=== PATIENT | female | born 1940 | race Caucasian/White ===

== ENCOUNTER 2017-09-01 18:50 | Emergency (ER) | payer MEDICARE ==
[2017-09-01 21:50] LABS: ABS Basophils 0.1 10^3/ul (0-0.2); ABS Eosinophils 0.1 10^3/ul (0-0.6); ABS Lymphocytes 2.3 10^3/ul (1.0-4.8); ABS Monocytes 0.9 10^3/ul (0-0.8); ABS Neutrophils 5.1 10^3/ul (1.5-7.7); ABS Nucleated RBC 0 10^3/ul; Eosinophil % 0.7 % (0-6); Hematocrit 41 % (35-47); Hemoglobin 13.7 g/dl (12.0-16.0); Lymphocyte % 27.3 % (25-47); Mean Corpuscular HGB Conc 34 g/dl (31-36); Mean Corpuscular Hemoglobin 31 pg (27-31); Mean Corpuscular Volume 92 fL (80-97); Mean Platelet Volume 9.8 um3 (7.4-10.4); Nucleated Red Blood Cells % 0; Platelet Count 284 10^3/ul (150-450); Red Cell Distribution Width 13 % (10.5-15); White Blood Count 8.5 10^3/ul (3.5-10.8)
[2017-09-01 22:06] LABS: EGFR Non-African American 34.6 (>60)
[2017-09-01 22:13] LABS: INR 1.1 (0.77-1.02)
--- NOTE | 2017-09-01 23:37 | ED ---
Lower Extremity - HPI Summary HPI Summary: 76 yo F c/o right lower leg pain for several days. Was started on doxycycline by Fina Jones NP on 08/31/17 for leg pain and redness and abd discomfort and pt has some relief, but states that last night the pain was so severe, she could not even put her leg down on the bed. Pt has hx of fracture to the right ankle twice in the past. She denies any new injury or fall, but states the right ankle continues painful and swollen. No hx blood clots. No chest pain or SOB. Pt states the abd pain, N,V, D that she thought might be food poisoning from take out hamburger ([employer]) is gone since the doxycycline. - History of Current Complaint Chief Complaint: EDExtremityLower Stated Complaint: RT FOOT SWELLING Time Seen by Provider: 09/01/17 22:59 Hx Obtained From: Patient Mechanism Of Injury: Other - no known injury Onset of Pain: Prior to Arrival Onset/Duration: Still Present Severity Initially: Severe Severity Currently: Severe Pain Intensity: 10 Pain Scale Used: 0-10 Numeric Timing: Constant Location: Is Discrete @ - right leg Character Of Pain: Sharp, Aching Associated Signs And Symptoms: Positive: Swelling, Fever - 2 days ago, resolved. Negative: Redness, Bruising Aggravating Factor(s): Standing Alleviating Factor(s): Nothing Able to Bear Weight: Yes - Allergies/Home Medications Allergies/Adverse Reactions: Allergies Allergy/AdvReac Type Severity Reaction Status Date / Time tetracycline Allergy Nausea Verified 09/02/17 01:05 Yellow Jackets Allergy Intermediate Swelling Uncoded 09/02/17 01:05 PMH/Surg Hx/FS Hx/Imm Hx Previously Healthy: No Endocrine/Hematology History: Denies: Hx Diabetes, Hx Systemic Lupus Erythematosus, Hx Thyroid Disease Cardiovascular History: Reports: Hx Hypertension Denies: Hx Congestive Heart Failure Respiratory History: Denies: Hx Asthma, Hx Chronic Obstructive Pulmonary Disease (COPD) GI History: Denies: Hx Ulcer History: Reports: Hx Renal Disease - HX RENAL CA, Other Problems/ Disorders - kidney ca Denies: Hx Dialysis Musculoskeletal History: Reports: Hx Osteoporosis Denies: Hx Rheumatoid Arthritis - Cancer History Cancer Type, Location and Year: malignant neoplasm kidney , left nephectomy 2009 Hx Chemotherapy: No Hx Radiation Therapy: No - Surgical History Surgery Procedure, Year, and Place: radical nephrectomy-left KIDNEY 2009, Pin in right foot @ AGE 26 YRS, tonsiLlectomy A CHILD AGE 7; - Immunization History Date of Tetanus Vaccine: utd Date of Influenza Vaccine: utd Infectious Disease History: Yes Infectious Disease History: Reports: Hx Shingles Denies: Hx Hepatitis, Hx Human Immunodeficiency Virus (HIV), History Other Infectious Disease, Traveled Outside the [place] in Last 30 Days - Family History Known Family History: Positive: Hypertension - Social History Lives: Assisted Living Alcohol Use: Occasionally Hx Substance Use: No Substance Use Type: Reports: None Smoking Status (MU): Former Smoker Review of Systems Positive: Fever - fever resolved on antibiotics Cardiovascular: Negative Respiratory: Negative Positive: Vomiting - resolved, Diarrhea - resolved, Nausea - resolved Positive: no symptoms reported Positive: Arthralgia - right ankle and right leg , Other - swelling right ankle Skin: Negative Neurological: Negative Psychological: Normal All Other Systems Reviewed And Are Negative: Yes Physical Exam Triage Information Reviewed: Yes Vital Signs On Initial Exam: Initial Vitals Temp Pulse Resp BP Pulse Ox 99.3 F 68 18 115/55 96 09/01/17 19:13 09/01/17 19:13 09/01/17 19:13 09/01/17 19:13 09/01/17 19:13 Vital Signs Reviewed: Yes Appearance: Positive: Well-Appearing, Pain Distress, Obese Skin: Positive: Warm, Skin Color Reflects Adequate Perfusion, Dry, Tender. Negative: Erythema @ Head/Face: Positive: Normal Head/Face Inspection - right ankle, right post calf Eyes: Positive: EOMI, SHAWNA, Conjunctiva Clear ENT: Positive: Normal ENT inspection, Hearing grossly normal Neck: Positive: Supple, Nontender, No Lymphadenopathy Respiratory/Lung Sounds: Positive: Clear to Auscultation, Breath Sounds Present Cardiovascular: Positive: RRR, S1, S2. Negative: Murmur, Rub Abdomen Description: Positive: Nontender, Soft. Negative: Distended, Guarding, Pulsatile Mass Bowel Sounds: Positive: Present Musculoskeletal: Positive: Normal, Strength/ROM Intact, Pain @ - right ankle, right post calf Neurological: Positive: Sensory/Motor Intact, Alert, Oriented to Person Place, Time, Facial Symmetry, Speech Normal, Other - antalgic gait but able to bear wt Psychiatric: Positive: Normal - [place] Coma Scale Best Eye Response: 4 - Spontaneous Best Motor Response: 6 - Obeys Commands Best Verbal Response: 5 - Oriented Coma Scale Total: 15 Diagnostics - Vital Signs Vital Signs Temp Pulse Resp BP Pulse Ox 09/01/17 19:13 99.3 F 68 18 115/55 96 - Laboratory Lab Results: Lab Results 09/01/17 09/01/17 09/01/17 Range/Units 21:40 21:40 21:40 WBC 8.5 (3.5-10.8) 10^3/ul RBC 4.40 (4.00-5.40) 10^6/ul Hgb 13.7 (12.0-16.0) g/dl Hct 41 (35-47) % MCV 92 (80-97) fL MCH 31 (27-31) pg MCHC 34 (31-36) g/dl RDW 13 (10.5-15) % Plt Count 284 (150-450) 10^3/ul MPV 9.8 (7.4-10.4) um3 Neut % (Auto) 60.2 (38-83) % Lymph % (Auto) 27.3 (25-47) % [place] % (Auto) 10.9 H (0-7) % Eos % (Auto) 0.7 (0-6) % Baso % (Auto) 0.9 (0-2) % Absolute Neuts (auto) 5.1 (1.5-7.7) 10^3/ul Absolute Lymphs (auto) 2.3 (1.0-4.8) 10^3/ul Absolute Monos (auto) 0.9 H (0-0.8) 10^3/ul Absolute Eos (auto) 0.1 (0-0.6) 10^3/ul Absolute Basos (auto) 0.1 (0-0.2) 10^3/ul Absolute Nucleated RBC 0 10^3/ul Nucleated RBC % 0 INR (Anticoag Therapy) 1.10 H (0.77-1.02) APTT 27.7 (26.0-36.3) seconds Sodium 140 (135-145) mmol/L Potassium 4.4 (3.5-5.0) mmol/L Chloride 105 (101-111) mmol/L Carbon Dioxide 24 (22-32) mmol/L Anion Gap 11 (2-11) mmol/L BUN 20 (6-24) mg/dL Creatinine 1.47 H (0.51-0.95) mg/dL Est GFR ( Amer) 41.8 (>60) Est GFR (Non-Af Amer) 34.6 (>60) BUN/Creatinine Ratio 13.6 (8-20) Glucose 116 H (70-100) mg/dL Lactic Acid (0.5-2.0) mmol/L Calcium 11.3 H (8.6-10.3) mg/dL Total Bilirubin 0.60 (0.2-1.0) mg/dL AST 21 (13-39) U/L ALT 27 (7-52) U/L Alkaline Phosphatase 84 (34-104) U/L Troponin I 0.00 (<0.04) ng/mL Total Protein 7.8 (6.4-8.9) g/dL Albumin 4.5 (3.2-5.2) g/dL Globulin 3.3 (2-4) g/dL Albumin/Globulin Ratio 1.4 (1-3) 09/01/17 Range/Units 21:40 WBC (3.5-10.8) 10^3/ul RBC (4.00-5.40) 10^6/ul Hgb (12.0-16.0) g/dl Hct (35-47) % MCV (80-97) fL MCH (27-31) pg MCHC (31-36) g/dl RDW (10.5-15) % Plt Count (150-450) 10^3/ul MPV (7.4-10.4) um3 Neut % (Auto) (38-83) % Lymph % (Auto) (25-47) % [place] % (Auto) (0-7) % Eos % (Auto) (0-6) % Baso % (Auto) (0-2) % Absolute Neuts (auto) (1.5-7.7) 10^3/ul Absolute Lymphs (auto) (1.0-4.8) 10^3/ul Absolute Monos (auto) (0-0.8) 10^3/ul Absolute Eos (auto) (0-0.6) 10^3/ul Absolute Basos (auto) (0-0.2) 10^3/ul Absolute Nucleated RBC 10^3/ul Nucleated RBC % INR (Anticoag Therapy) (0.77-1.02) APTT (26.0-36.3) seconds Sodium (135-145) mmol/L Potassium (3.5-5.0) mmol/L Chloride (101-111) mmol/L Carbon Dioxide (22-32) mmol/L Anion Gap (2-11) mmol/L BUN (6-24) mg/dL Creatinine (0.51-0.95) mg/dL Est GFR ( Amer) (>60) Est GFR (Non-Af Amer) (>60) BUN/Creatinine Ratio (8-20) Glucose (70-100) mg/dL Lactic Acid 0.9 (0.5-2.0) mmol/L Calcium (8.6-10.3) mg/dL Total Bilirubin (0.2-1.0) mg/dL AST (13-39) U/L ALT (7-52) U/L Alkaline Phosphatase (34-104) U/L Troponin I (<0.04) ng/mL Total Protein (6.4-8.9) g/dL Albumin (3.2-5.2) g/dL Globulin (2-4) g/dL Albumin/Globulin Ratio (1-3) Result Diagrams: 09/01/17 21:40 09/01/17 21:40 Lab Statement: Any lab studies that have been ordered have been reviewed, and results considered in the medical decision making process. - Radiology right ankle Xray Interpretation: No Acute Changes Radiology Interpretation Completed By: ED Physician - no fracture noted - Additional Comments Diagnostic Additional Comments: Right leg ultrasound: radiologist: No DVT Re-Evaluation - Re-Evaluation First Eval Re-Evaluation Time: 00:30 Change: Unchanged Comment: no change, awaiting US report Second Eval Re-Evaluation Time: 01:15 Change: Unchanged Comment: given xray and US results. Asks for one aspirin for pain. Agrees to try a CAM boot. Lower Extremity Course/Dx - Course Course Of Treatment: Pt had labs, plain xray and US of her right ankle to eval for leg and ankle pain. Diff dx cellulitis vs DVT vs fracture. No fx or DVT. Pt advised to continue doxycycline as directed to continue treating probable resolving cellulitis. Pt given CAM boot for ambulation. - Diagnoses Differential Diagnosis/HQI/PQRI: Positive: Cellulitis, DVT, Fracture (Closed), Infection Provider Diagnoses: Acute right ankle pain, Cellulitis Discharge - Sign-Out/Discharge Documenting (check all that apply): Discharge/Admit/Transfer - home - Discharge Plan Condition: Stable Disposition: HOME Patient Education Materials: Ankle Sprain (ED), Swollen Joint (ED) Referrals: Luz Wakefield MD [Primary Care Provider] - 2 Days Additional Instructions: Dr. Adair did not see any fracture in your ankle. That is a preliminary report. If there is a change in the reading, we will contact you. We gave you a walking boot that you may wear for comfort. The ultrasound of your leg also did not show any blood clot. Dr. Adair recommends that you should continue the doxycycline as directed. Return to the ER if you have any new or worsening symptoms. - Billing Disposition and Condition Condition: STABLE Disposition: Home
[2017-09-02] MEDS ORDERED: Aspirin TAB* 325 MG PO ONE (01:15)
[2017-09-02 01:49] VITALS: BP 136/74
--- NOTE | 2017-09-02 07:13 | RAD ---
INDICATION: Right ankle pain and swelling COMPARISON: None TECHNIQUE: AP, lateral, and oblique views were obtained. FINDINGS: There is osteopenia. There is moderate degenerative change about the tibiotalar joint. There is mild diffuse soft tissue swelling. Incidental note is made of small heel spurs. IMPRESSION: NO ACUTE BONY FINDINGS.
--- NOTE | 2017-09-02 07:39 | RAD ---
INDICATION: Pain and swelling. COMPARISON: None TECHNIQUE: Duplex interrogation of the Lowerextremity was performed. FINDINGS: Deep veins: The common femoral, great saphenous, profunda femoris, proximal, mid, and distal deep femoral, popliteal, posterior tibial, and peroneal veins are patent. There is normal compressibility, augmentation, and phasic flow. Superficial veins: There are no findings of superficial thrombophlebitis. Popliteal fossa:There is no evidence of a popliteal cyst. Soft tissues:There are no soft tissue abnormalities. IMPRESSION: Normal examination. No evidence of deep venous thrombosis
== END 2017-09-02 01:51 | disposition home or self-care (01) ==
LOC: ED 18:50
DX: M79.661 Pain in right lower leg (principal); L03.115 Cellulitis of right lower limb; Z85.528 Personal history of other malignant neoplasm of kidney; Z90.5 Acquired absence of kidney; Z87.891 Personal history of nicotine dependence; Z88.3 Allergy status to other anti-infective agents
CPT/HCPCS: 36415; 80053; 83605; 84484; 85025; 85610; 85730; 87040; 99282

== ENCOUNTER 2019-03-03 14:24 | Observation (INO) | payer MEDICARE, OTHER ==
[2019-03-03] MEDS ORDERED: Acetaminophen TAB* 325 MG PO ONE (14:29)
[2019-03-03] MEDS ORDERED: NS 0.9% 1000 ML** 1,000 ML IV ONE ×2 (14:29→15:51)
--- NOTE | 2019-03-03 14:38 | ED ---
HPI Febrile Illness - HPI Summary HPI Summary: This pt is a 78 Y/O F presenting to [facility] after being transported by the ambulance for a CC of a fevrile illness. She states that she has been sick with a fever and nigh diaphoresis since 02/26/19 and has lower extremity pain bilaterially with both ROM and palpation that is rated a 6/10 in severity. She states that she has arthralgia as well. She had a fever at home of 100.3 and 102.7 while enroute in the ambulance. She states that she has chills constantly and has been trying to stay hydrated. She states that she is having troubles urinating and that she has been having weakness and fatigue. She states that she has issues with ambulating and is unable to stand normally. She states that she has a Hx of gout and has been taking medications until she had a kidney removed and was taken off of the medication. She states that she has been unable to take her gout medications due to an inability to reach her PCP. She denies any coughs, sore throats, N/V/D, and neck pain. She has no aggravating or alleviating factors. She has a PMHx of Gout, prediabetic, and a nephrectomy due to kidney cancer. - History of Current Complaint Chief Complaint: EDFever Time Seen by Provider: 03/03/19 14:28 Hx Obtained From: Patient Onset/Duration: Started Minutes Ago, Still Present Time of Onset: 14:26 Timing: Constant Temperature: 102.6 F Initial Severity: Moderate Current Severity: Moderate Pain Intensity: 6 Pain Scale Used: 0-10 Numeric Aggravating Factors: Nothing Alleviating Factors: Nothing Associated Signs and Symptoms: Negative - coughs, sore throats, N/V/D, and neck pain, Chills, Fluid Intake - increased but states that she still feels dehydrated, Headache, Joint Pain, Night Sweats, Other: - urinary issues, fatigue - Allergy/Home Medications Allergies/Adverse Reactions: Allergies Allergy/AdvReac Type Severity Reaction Status Date / Time doxycycline Allergy Rash Verified 03/03/19 14:32 tetracycline Allergy Nausea Verified 03/03/19 14:28 [place] Allergy Intermediate Swelling Uncoded 03/03/19 14:28 Home Medications: Home Medications Alendronate TAB (NF) [Fosamax TAB (NF)] 10 mg PO DAILY 03/03/19 [History Confirmed 03/03/19] Aspirin EC TAB* [Ecotrin EC Low Dose 81 MG*] 81 mg PO DAILY 03/03/19 [History Confirmed 03/03/19] Atenolol TAB* [Tenormin TAB* 25 MG] 25 mg PO DAILY 03/03/19 [History Confirmed 03/03/19] LevoCETirizine TAB (NF) [Xyzal TAB (NF)] 5 mg PO DAILY 03/03/19 [History Confirmed 03/03/19] Omeprazole 20 mg PO DAILY 03/03/19 [History Confirmed 03/03/19] Simvastatin (NF) [Zocor (NF)] 40 mg PO DAILY 03/03/19 [History Confirmed ] PMH/Surg Hx/FS Hx/Imm Hx Previously Healthy: Yes Endocrine/Hematology History: Denies: Hx Diabetes, Hx Systemic Lupus Erythematosus, Hx Thyroid Disease Cardiovascular History: Reports: Hx Hypertension Denies: Hx Congestive Heart Failure Respiratory History: Denies: Hx Asthma, Hx Chronic Obstructive Pulmonary Disease (COPD) GI History: Reports: Other GI Disorders - denies s/s hx ca Denies: Hx Ulcer History: Reports: Hx Renal Disease - HX RENAL CA, Other Problems/ Disorders - kidney ca Denies: Hx Dialysis Musculoskeletal History: Reports: Hx Osteoporosis Denies: Hx Rheumatoid Arthritis - Cancer History Cancer Type, Location and Year: malignant neoplasm kidney , left nephectomy 2009 Hx Chemotherapy: No Hx Radiation Therapy: No - Surgical History Surgical History: Yes Surgery Procedure, Year, and Place: radical nephrectomy-left KIDNEY 2009, Pin in right foot @ AGE 26 YRS, tonsiLlectomy A CHILD AGE 7; - Immunization History Date of Tetanus Vaccine: utd Date of Influenza Vaccine: utd Immunizations Up to Date: Yes Infectious Disease History: No Infectious Disease History: Reports: Hx Shingles Denies: Hx Hepatitis, Hx Human Immunodeficiency Virus (HIV), History Other Infectious Disease, Traveled Outside the [place] in Last 30 Days - Family History Known Family History: Positive: None, Hypertension - Social History Occupation: Retired Lives: With Family Alcohol Use: Occasionally Hx Substance Use: No Substance Use Type: Reports: None Hx Tobacco Use: Yes Smoking Status (MU): Former Smoker Review of Systems Positive: Fever - 102.6, Chills, Fatigue, Skin Diaphoresis - night sweats ENT: Negative - neck pain Negative: Cough Negative: Vomiting, Diarrhea, Nausea Musculoskeletal: Other - States lower extremity pain Positive: Arthralgia Positive: Headache, Weakness All Other Systems Reviewed And Are Negative: Yes Physical Exam - Summary Physical Exam Summary: Constitutional: Well-developed, Well-nourished, Alert. (-) Distressed Skin: Warm, Dry HENT: Normocephalic; Atraumatic, Dry mucus membranes Eyes: Conjunctiva normal Neck: Musculoskeletal ROM normal neck. (-) JVD, (-) Stridor, (-) Tracheal deviation Cardio: Rhythm regular, rate normal, Heart sounds normal; Intact distal pulses; The pedal pulses are 2+ and symmetric. Radial pulses are 2+ and symmetric. Pulmonary/Chest wall: Effort normal. (-) Respiratory distress, (-) Wheezes, (-) Rales Abd: Soft, (-) tenderness, (-) Distension, (-) Guarding, (-) Rebound Musculoskeletal: Bilateral lower extremity tenderness to palpation, no edema, erythema, or deformity. No isolated joint pain. Neuro: Alert, Oriented x3 Psych: Mood and affect Normal Triage Information Reviewed: Yes Vital Signs On Initial Exam: Initial Vitals Temp Pulse Resp BP Pulse Ox 102.6 F 76 20 176/86 96 03/03/19 14:25 03/03/19 14:25 03/03/19 14:25 03/03/19 14:25 03/03/19 14:25 Vital Signs Reviewed: Yes Procedures - Sedation Patient Received Moderate/Deep Sedation with Procedure: No Diagnostics - Vital Signs Vital Signs Temp Pulse Resp BP Pulse Ox 03/03/19 14:25 102.6 F 76 20 176/86 96 - Laboratory Result Diagrams: 03/03/19 14:37 03/03/19 14:37 Lab Statement: Any lab studies that have been ordered have been reviewed, and results considered in the medical decision making process. Course/Dx - Course Course Of Treatment: This pt is a 78 Y/O F presenting to [facility] after being transported by the ambulance for a CC of a febrile illness. She states that she has been sick with a fever and nigh diaphoresis since 02/26/19 and has lower extremity pain with both ROM and palpation. She states that she has arthralgia as well and a headache that has been present since the onset. She had a fever at home of 100.3 and 102.7 while enroute in the ambulance. She states that she has chills constantly and has been trying to stay hydrated but constantly feels dejydrated. She states that she is having troubles urinating and that she has been having weakness and fatigue. She has a PMHx of kidney cancer, gout, and is prediabetic. Her PE found that she has dry mucus membranes and Bilateral lower extremity tenderness to palpation, no edema, erythema, or deformity. No isolated joint pain. She received fluids and APAP during her ED course. She received a rapid influenza test upon arrival to her ED room. Patient states history of pseudogout, complaining of pain in bilateral feet/ankles, denies trauma. States prior improvement with naproxen which her cloth picker subsequently recommended against taking given history of renal cancer status post nephrectomy, has one kidney with elevated creatinine level. Patient notes prior steroid injection which likewise helped with her pain. At this point, patient given Tylenol for her fever. Flu swab negative. No signs of SBI. Patient still complaining of bilateral ankle pain, given 2 mg of morphine, will reassess. Pt will be admitted to [facility] as a skilled nursing admission due to inability to ambulate. - Diagnoses Provider Diagnoses: Bilateral ankle pain, Febrile illness - Provider Notifications Discussed Care Of Patient With: Madelin Sanchez Time Discussed With Above Provider: 20:43 Instructed by Provider To: Admit As Inpatient Admit/Transition Orders Completed By ED Provider: Yes Discharge ED - Sign-Out/Discharge Documenting (check all that apply): Patient Departure - admitted - Discharge Plan Condition: Stable Disposition: ADMITTED TO [facility] Referrals: Chioma Davis DO [Primary Care Provider] - - Attestation Statements Document Initiated by Scribe: Yes Documenting Scribe: Luis Alberto Westbrook Provider For Whom Scribe is Documenting (Include Credential): Shiv Nazario MD Scribe Attestation: Luis Alberto Dill, scribed for Shiv Nazario MD on 03/03/19 at 2042. Status of Scribe Document: Ready
[2019-03-03 14:46] LABS: Hematocrit 41 % (35-47); Hemoglobin 13.9 g/dL (12.0-16.0); Mean Corpuscular HGB Conc 34 g/dL (31-36); Mean Corpuscular Hemoglobin 32 pg (27-31); Mean Corpuscular Volume 93 fL (80-97); Mean Platelet Volume 9.8 fL (7.4-10.4); Platelet Count 223 10^3/uL (150-450); Red Blood Count 4.41 10^6 /uL (3.70-4.87); Red Cell Distribution Width 13 % (10-15); White Blood Count 8.2 10^3/uL (3.5-10.8)
[2019-03-03 14:52] LABS: ABS Lymphocytes 1.2 10^3/ul (1.0-4.8); ABS Monocytes 0.8 10^3/ul (0-0.8); Eosinophil % 0.3 %; Lymphocyte % 14.9 %; Nucleated Red Blood Cells % 0.1
[2019-03-03 15:01] LABS: ALT 20 U/L (7-52); AST 18 U/L (13-39); Albumin 4.4 g/dL (3.2-5.2); Albumin/Globulin Ratio 1.3 (1-3); Alkaline Phosphatase 83 U/L (34-104); Anion Gap 8 mmol/L (2-11); BUN/Creatinine Ratio 11.9 (8-20); Blood Urea Nitrogen 15 mg/dL (6-24); CO2 Carbon Dioxide 23 mmol/L (22-32); Calcium 10.5 mg/dL (8.6-10.3); Chloride 109 mmol/L (101-111); EGFR African American 49.7 (>60); EGFR Non-African American 41.1 (>60); Globulin 3.3 g/dL (2-4); Glucose 121 mg/dL (70-100); Potassium 4.4 mmol/L (3.5-5.0); Sodium 140 mmol/L (135-145); Total Protein 7.7 g/dL (6.4-8.9)
[2019-03-03 15:06] LABS: Influenza A Molecular NEGATIVE (Negative); Influenza B Molecular NEGATIVE (Negative)
--- OUTSIDE RECORDS SUMMARY | 2019-03-03 15:27 | XMS REPORT | Continuity of Care Document ---
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 Problems Provider Date Idiopathic gout, left ankle and foot Ahmet Chambers MD Onset: 02/19/2018 Idiopathic gout, left knee Ahmet Chambers MD Onset: 10/02/2017 Chondrocalcinosis due to pyrophosphate crystals Chioma Davis DO Onset: Hyperlipidemia Chioma Davis DO Onset: 12/25/2018 Social History Type Date Description Comments Sex Unknown ETOH Use Drinks Alcoholic Beverages Rarely Tobacco Use Start: Unknown Patient has never smoked Smoking Status Reviewed: 01/24/19 Patient has never smoked Exercise Type/Frequency Exercises rarely Allergies, Adverse Reactions, Alerts Active Allergies Reaction Severity Comments Date Doxycycline Abdominal pain, Palpitations, burning Severe 12/25/2018 Bee Sting sight swelling, pain Mild 12/25/2018 Inactive Allergies NKDA 06/05/2013 Medications Active Medications SIG Qnty Indications Ordering Date Provider Alendronate Sodium take one tab 30tabs M81.0 Chioma Davis, 01/24/2019 70mg once weekly DO Tablets Atenolol 1 by mouth Unknown 25mg Tablets every day Levocetirizine 1 by mouth Unknown Dihydrochloride every day 5mg Tablets Simvastatin 1 by mouth Unknown 20mg Tablets every day Omeprazole 1 by mouth Unknown 20mg Capsules DR every day Aspirin Adult Low Dose 1 by mouth Unknown 81mg every day Tablets Aspirin Adult as needed Unknown 325mg Tablets Medications Administered in Office Medication SIG Qnty Indications Ordering Provider Date Triamcinolone (Kenalog) Ahmet Chambers MD 10/02/2017 Injection Triamcinolone (Kenalog) Ahmet Chambers MD 09/11/2017 Injection Immunizations CPT Code Status Date Vaccine Lot # [id number] Given 12/31/2017 Fluzone High Dose Vital Signs Date Vital Result Comment 01/24/2019 10:24am Height 66 inches 5'6" Weight 219.00 lb Heart Rate 87 /min BP Systolic 140 mmHg BP Diastolic 80 mmHg Body Temperature 97.7 F O2 % BldC Oximetry 97 % BMI (Body Mass Index) 35.3 kg/m2 12/25/2018 9:25am Height 66 inches 5'6" Weight 217.00 lb with shoes Heart Rate 73 /min BP Systolic 138 mmHg LA sitting BP Diastolic 85 mmHg LA sitting Body Temperature 97.1 F O2 % BldC Oximetry 96 % BMI (Body Mass Index) 35.0 kg/m2 Results Test Acquired Date Facility Test Result H/L Range Note Lipid Profile 12/25/2018 [facility] Triglycerides 334 mg/dL 1 (Trig/Chol/HDL) [address] [place] [address] [phone] Cholesterol 196 mg/dL 2 HDL Cholesterol 42.1 mg/dL 3 LDL Cholesterol 87 mg/dL 4 Laboratory test 12/25/2018 [facility] Hemoglobin A1c 5.9 % High 4.0-5.[address] (Glyco HGB) [place] [address] [phone] Comp Metabolic 12/25/2018 [facility] Sodium 144 Normal 135- [address] mmol/[place] [address] [phone] Potassium 4.4 mmol/L Normal 3.5-5.0 Chloride 109 mmol/L Normal 101-111 Co2 Carbon Dioxide 28 mmol/L Normal 22-32 Anion Gap 7 mmol/L Normal 2-11 Glucose 129 mg/dL High 70-100 Blood Urea Nitrogen 15 mg/dL Normal 6-24 Creatinine 1.27 mg/dL High 0.51-0.95 BUN/Creatinine Ratio 11.8 Normal 8-20 Calcium 10.8 mg/dL High 8.6-10.3 Total Protein 6.8 g/dL Normal 6.4-8.9 Albumin 4.4 g/dL Normal 3.2-5.2 Globulin 2.4 g/dL Normal 2-4 Albumin/Globulin Ratio 1.8 Normal 1-3 Total Bilirubin 0.50 mg/dL Normal 0.2-1.0 Alkaline Phosphatase 84 U/L Normal 34-104 Alt 43 U/L Normal 7-52 Ast 31 U/L Normal 13-39 Egfr Non- 40.7 >60 Egfr 49.2 >60 6 1,25 Dihydroxy Vitamin 12/25/2018 [facility] Calcitriol 39 pg/ mL 18-78 [address] [place] [address] [phone] Desirable: <150 Borderline High: 150-199 High: 200-499 Very High: >500 2 Desirable: <200 Borderline High: 200-239 High: >239 3 Low: <40 Desirable: 40-60 High: >60 4 Desirable: <100 Near Optimal: 100-129 Borderline High: 130-159 High: 160-189 Very High: >189 5 Therapeutic target for the treatment of diabetes mellitus patients is <7% HBA1C, and in selective patients <6.0%. Please refer to [place] [employer] diabetic care guidelines for further information. 6 Because ethnic data is not always readily available, this report includes an eGFR for both -Americans and non- Americans. The National Kidney Disease Education Program (NKDEP) does not endorse the use of the MDRD equation for patients that are not between the ages of 18 and 70, are , have extremes of body size, muscle mass, or nutritional status, or are non- or non-. According to the National Kidney Foundation, irrespective of diagnosis, the stage of the disease is based on the level of kidney function: Stage Description GFR(mL/min/1.73 m(2)) 1 Kidney damage with normal or decreased GFR 90 2 Kidney damage with mild decrease in GFR 60-89 3 Moderate decrease in GFR 30-59 4 Severe decrease in GFR 15-29 5 Kidney failure <15 (or dialysis) 7 ADDITIONAL INFORMATION This test was developed and its performance characteristics determined by [facility] in a manner consistent with CLIA requirements. This test has not been cleared or approved by the U.S. Food and Drug Administration. Test Performed by: [facility] [address] [place] [address] Cad Cam Programmer: Twin Silva M.D. Ph.D.; CLIA# [id number] Procedures Date Code Description Status 12/27/2018 090555275 Bone Mineral Density Test Completed Medical Devices Description No Information Available Encounters Type Date Location Provider Dx Diagnosis Office Visit 12/25/2018 [employer] Internal Chioma Davis, Z00.00 Encntr for general 9:20a Medicine - Suite DO adult medical exam R w/o abnormal findings Z13.220 Encounter for screening for lipoid disorders Z85.528 Personal history of other malignant neoplasm of kidney I10 Essential (primary) hypertension M10.00 Idiopathic gout, unspecified site Z90.5 Acquired absence of kidney Assessments Date Code Description Provider 01/24/2019 M81.0 Age-related osteoporosis without current Chioma Senner, DO pathological fracture 12/25/2018 Z00.00 Encounter for general adult medical examination Chioma Davis, DO without abnormal findings 12/25/2018 Z13.220 Encounter for screening for lipoid disorders Chioma Davis, DO 12/25/2018 Z85.528 Personal history of other malignant neoplasm of Chioma Senner, DO kidney 12/25/2018 I10 Essential (primary) hypertension Chioma Davis, DO 12/25/2018 M10.00 Idiopathic gout, unspecified site Chioma Sencal, DO 12/25/2018 Z90.5 Acquired absence of kidney Chioma Senner, DO Plan of Treatment 01/24/2019 - Chioma Davis, DOM81.0 Age-related osteoporosis without current pathological fractureNew Medication:Alendronate Sodium 70 mg - take one tab once weeklyReferral:Genet Piña MD, Sports Medicine:Family pr Functional Status Description No Information Available Mental Status Description No Information Available Referrals Refer to Dr Reason for Referral Status Appt Date Genet Piña MD Created [address] [place] [address] [phone]
[2019-03-03] MEDS ORDERED: Morphine 4 MG/ML VIAL (1 ml) 4 MG/ML VIAL IV ONE (17:04)
[2019-03-03] MEDS ORDERED: Ondansetron INJ* 2 MG/ML VIAL IV ONE (17:05)
[2019-03-03 18:15] LABS: Urine Appearance Clear; Urine Bilirubin Negative (Negative); Urine Blood Negative (Negative); Urine Color Yellow; Urine Glucose Negative (Negative); Urine Ketones Negative (Negative); Urine Nitrite Negative (Negative); Urine Protein Negative (Negative); Urine Specific Gravity 1.017 (1.010-1.030); Urine Urobilinogen Negative (Negative)
[2019-03-03 18:29] LABS: Urine Bacteria Absent (Absent); Urine Red Blood Cell Trace(0-2/hpf) (Absent); Urine Squamous Epithelial Cell Present (Absent); Urine Transitional Epithelial Present (Absent); Urine White Blood Cell 3+(>20/hpf) (Absent)
[2019-03-03 21:11] LABS: Rheumatoid Factor < 10 IU/mL (<15)
[2019-03-03 21:12] LABS: C Reactive Protein 63.66 mg/L (<8.01); Uric Acid 9.4 mg/dL (2.3-6.6)
[2019-03-03] MEDS ORDERED: Acetaminophen TAB* 325 MG PO PRN (21:37)
[2019-03-03 22:02] LABS: Erythrocyte Sed Rate 52 mm/Hr (0-29)
--- NOTE | 2019-03-03 23:02 | HP ---
CC: Dr. Davis* HISTORY AND PHYSICAL: DATE OF ADMISSION: 03/03/19 PRIMARY CARE PROVIDER: Dr. Davis. CHIEF COMPLAINT: Bilateral lower extremity pain. HISTORY OF PRESENT ILLNESS: Ms. Mcqueen is a 78-year-old female who has a history of hypertension, hyperlipidemia, and osteoporosis as well as possible past diagnosis of pseudogout involving the ankle, who presents to the emergency room with complaints of bilateral lower extremity pain. The patient states that approximately 6 days ago, her symptoms began. She states that she was trying to nurse her back to health as he had recently been hospitalized with pneumonia. She began to have initially left foot pain, which then traveled up the left leg. Then, the right knee was involved then the right foot was involved. She was hopeful that the left foot will get better and the right foot would be sore for a while; however, that did not happen and now she has bilateral foot and ankle pain. She states that she spent the last 6 days essentially in bed being up for only a couple of minutes at a time to get to the bathroom. She has not been able to really walk due to severe pain. She does admit to shivering while lying in bed over the last 6 days. Initially she had headache. Prior to all these beginning, she did have diffuse body aches. She never took her temperature; however, when she presented to the emergency room, she had a fever of 102.6. The patient does state that in the past, perhaps several years ago, she had a similar situation where she had severe ankle pain. She saw Dr. Chambers from Orthopedics, who ultimately did steroid injection and diagnosed her with pseudogout. She states that helped dramatically. PAST MEDICAL HISTORY: 1. Hypertension. 2. GERD. 3. Allergic rhinitis. 4. Hyperlipidemia. 5. Osteoporosis. 6. Renal cell carcinoma, status post nephrectomy. PAST SURGICAL HISTORY: 1. Left nephrectomy. 2. Bilateral ankle surgery. MEDICATIONS: 1. Alendronate 10 mg p.o. daily. 2. Levocetirizine 5 mg p.o. daily. 3. Aspirin 81 mg p.o. daily. 4. Atenolol 25 mg p.o. daily. 5. Omeprazole 20 mg p.o. daily. 6. Simvastatin 40 mg p.o. daily. ALLERGIES: DOXYCYCLINE and TETRACYCLINE. FAMILY HISTORY: Mom of pancreatic cancer. Dad of possibly COPD. SOCIAL HISTORY: The patient was a former smoker quitting at the age of 26. She drinks alcohol on rare occasion. 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 She is . She has 2 children. She indicates that her is her healthcare proxy. REVIEW OF SYSTEMS: A complete 11-system review of systems is obtained. Pertinent positives and negatives are as per HPI and otherwise negative. PHYSICAL EXAMINATION GENERAL: The patient is a well-developed, obese elderly female, seen lying in the stretcher, in no acute distress. VITAL SIGNS: Blood pressure 142/58, pulse 62, respirations 19, temp 97.1, O2 sat 95% on room air. HEENT: Pupils are equal. Extraocular muscles are intact. Oropharynx is clear and moist. There is no submandibular, cervical, or supraclavicular adenopathy. PULMONARY: Lungs are clear to auscultation bilaterally. CARDIAC: Normal S1, S2. Regular rate and rhythm. I do not appreciate any murmurs. There is minimal bilateral foot edema. ABDOMEN: Bowel sounds present. Abdomen is soft, nontender, and nondistended. MUSCULOSKELETAL: There is no cyanosis or clubbing of the digits. There is full active range of the motion of the upper extremities. Range of motion with dorsi and plantar flexion of the feet bilaterally is reduced, otherwise range of motion is normal in the lower extremities. The bilateral ankles feel warm to touch though there is no erythema. They are tender to palpation. SKIN: Visible areas of skin are warm, dry, and without rash. NEUROLOGIC: Cranial nerves II through XII are grossly intact. Sensation is intact to light touch throughout. Strength appears to be normal in the upper extremities. Lower extremities strength is not tested at this time. PSYCH: The patient is alert. She is oriented x3. Affects appears appropriate. DIAGNOSTIC STUDIES/LAB DATA: WBC 8.2, hemoglobin 13.9, hematocrit 41, platelets 223. Sodium 140, potassium 4.4, chloride 109, CO2 23. BUN 15, creatinine 1.26. Glucose 121. Calcium 10.5. Bilirubin 0.7, AST 18, ALT 20, alk phos 83, albumin 4.4. Urinalysis reveals a specific gravity of 1.017, 2+ leukocyte esterase, 3+ wbc's, positive squamous epithelial cells, and positive transitional epithelial cells, absent bacteria. Influenza A and B negative. ASSESSMENT AND PLAN: Ms. Mcqueen is a 78-year-old female with history of hypertension, hyperlipidemia, osteoporosis, and possible pseudogout in the past who presents to the emergency room with complaints of bilateral lower extremity pain, more focally located in the bilateral ankles. 1. Bilateral ankle pain. The etiology behind this is unclear. It does sound in the past that she has had good response to steroid injection. At this point , she has received 60 mg of prednisone in the emergency room. She does not take NSAIDs due to her stage 3 chronic kidney disease secondary to left nephrectomy. We will continue prednisone 40 mg p.o. daily. I have ordered a physical therapy evaluation for tomorrow. At this point, the patient is only being admitted due to the fact that she is unable to ambulate due to such severe pain in her ankles.. I do not believe that she needs an acute aspiration of the ankle joint at this time. I have incredibly low suspicion for septic arthritis despite the patient having fever. The patient will have Tylenol and p.r.n. tramadol for pain. 2. Fever. It is unclear whether the patient is having this fever. There are no focal signs of infection. I am not starting antibiotics at this point. We will monitor for any clear symptoms or signs of infection. 3. Hypertension. Blood pressure is under fair control. She will continue on atenolol 25 mg p.o. daily. 4. Hyperlipidemia. Continue simvastatin 40 mg p.o. daily. 5. Gastrointestinal reflux disease. Continue omeprazole. 6. DVT prophylaxis. According to the Adult Thrombosis Prophylaxis Risk Factor Assessment Guide, the patient has a total risk factor score of 4 making her high risk. Heparin 5000 units subcutaneous q. 8 hours will be utilized as DVT prophylaxis. 7. Code status is full. TIME SPENT: Sixty-five minutes was spent admitting this patient. [id number]/[facility] #: [id number] ROGE
[2019-03-03] MEDS: traMADol TAB* 50 MG PO PRN (23:35)
[2019-03-03] MEDS: Heparin VIAL(*) 5000 UNITS/ML VIAL (FIVE THOUSAND) SUBCUT SCH (23:35)
[2019-03-04] MEDS: Heparin VIAL(*) 5000 UNITS/ML VIAL (FIVE THOUSAND) SUBCUT SCH ×2 (05:22→15:14)
[2019-03-04] MEDS ORDERED: Pantoprazole TAB * 40 MG TAB PO SCH (09:00)
[2019-03-04] MEDS ORDERED: Atorvastatin* 20 MG TAB PO SCH (09:00)
[2019-03-04] MEDS ORDERED: Aspirin EC TAB* 81 MG TAB.EC PO SCH (09:00)
[2019-03-04] MEDS ORDERED: Atenolol TAB* 25 MG PO SCH (09:00)
[2019-03-04] MEDS: traMADol TAB* 50 MG PO PRN (10:14)
[2019-03-04 10:52] VITALS: BP 153/63
--- NOTE | 2019-03-04 22:21 | DS ---
CC: Dr. Chioma Davis; Dr. Sangita Ha* DISCHARGE SUMMARY: DATE OF ADMISSION: 03/03/19 DATE OF DISCHARGE: 03/04/19 PRIMARY CARE PROVIDER: Dr. Chioma Davis. ATTENDING PHYSICIAN: Dr. Sangita Ha* (dictated by GAVIN Echeverria). PRIMARY DIAGNOSIS: 1. Bilateral ankle pain, likely due to pseudogout. SECONDARY DIAGNOSES: 1. Hypertension. 2. Hyperlipidemia. 3. Gastroesophageal reflux disease. 4. Renal cell carcinoma, status post nephrectomy. 5. Osteoporosis. 6. Allergic rhinitis. DISCHARGE MEDICATIONS: Home medications: 1. Alendronate 10 mg p.o. daily. 2. Aspirin 81 mg p.o. daily. 3. Atenolol 25 mg p.o. daily. 4. Levocetirizine 5 mg p.o. daily. 5. Omeprazole 20 mg p.o. daily. 6. Simvastatin 40 mg p.o. daily. New home medications: 1. Acetaminophen 650 mg p.o. q.4 hours p.r.n. pain. 2. Colchicine 0.6 mg p.o. daily. 3. Prednisone taper 40 mg daily x2 days, then decrease by 10 mg p.o. every 3 days, then discontinue. HISTORY OF PRESENT ILLNESS/HOSPITAL COURSE: Ms. Ramos is a 78-year-old female with a past medical history of hypertension, hyperlipidemia, and osteoporosis, possibly pseudogout of the ankle, who presented to the ER on 03/03 with complaints of bilateral lower extremity pain. For full and complete details, please see the history and physical dictated by Dr. Madelin Sanchez, but in short, the patient presents with the above symptoms. The pain started in the left foot/ankle, then travelled up the leg as well as to the right knee. She was admitted to the hospital and received 60 mg prednisone in the ER. Laboratory data revealed rheumatoid factor less than 10, elevated CRP, elevated ESR, uric acid of 9.4. The patient reports being unable to ambulate at admission and on the day after admission, the patient was able to ambulate without difficulty. Physical Therapy worked with the patient and recommends skilled PT to increase functional independence and safety. On the day of discharge, the patient reports great improvement in her lower extremity pain. She notes that she had bilateral ankle pain, left greater than right at admission that caused her to be unable to ambulate. Currently, she has no pain and she is ambulating without difficulty. The suspicion is that this is due to pseudogout. She has been started on prednisone which will be tapered off over the next 11 days. She will also be started on prophylactic dose of colchicine and will follow with her primary care provider. REVIEW OF SYSTEMS: A 14-point review of systems has been performed and all the pertinent positives and negative are in the HPI. All other systems are negative. Ms. Mcqueen is stable for discharge to home. PHYSICAL EXAMINATION: Vital Signs: Temperature 97.4 oral, heart rate 74, respiratory rate 18, oxygen saturation 97% on room air, blood pressure 153/63. General: Ms. Mcqueen is a well-developed, well-nourished, obese, older white lady, who is sitting in a chair with the lower extremities at floor. She is pleasant, cooperative, and appears to be in no acute distress. HEENT: Pupils equal, round and reactive to light. Extraocular movements are intact. Peripheral visual piedra grossly intact. Nonicteric sclerae. Hearing is grossly intact. Oral mucous membranes are mildly dry. Pharynx is clear without lesions, erythema, or exudate. The tongue is at midline. Palate elevates symmetrically. Cardiovascular: Regular rate and rhythm with S1 and S2 present. No murmurs, rubs, clicks, or gallops. There is no JVD or peripheral edema. Pulmonary: Symmetrical chest expansion without use of accessory muscles. Clear to auscultation bilaterally without rhonchi, wheezes, or rales. Abdomen: Obese. Bowel sounds in all quadrants, soft, nontender to palpation. Musculoskeletal: Bilateral upper extremities with full range of motion, equal strength of 5/5, equal licensed nurse practitioner strength. Bilateral lower extremities , 5/5 strength. Bilateral ankles with full range of motion. There is swelling noted to the lateral malleolus bilaterally with right greater than left. There is no associated erythema. This area is nontender to palpation. There is mild decreased range of motion, but range of motion is painless. Neuro: The patient is awake. She is alert and oriented x3 with cranial nerves II through XII grossly intact. DISPOSITION: Ms. Mcqueen is stable for discharge home. CONDITION: Good. DIET: Heart healthy. ACTIVITY: 1. As tolerated. 2. Followup with Physical Therapy. MEDICATIONS: 1. Prednisone taper starting with 40 mg daily x2 days, starting tomorrow, then decrease by 10 mg p.o. daily q.3 days until discontinued. 2. Colchicine daily. EDUCATION: 1. Follow up with primary care provider in 4 to 7 days. 2. Follow up with [facility] for PT needs. 3. Return to the ER or the nearest hospital if she experiences any return or worsening of symptoms, chest pain or discomfort, shortness of breath, dizziness , lightheadedness, loss of consciousness, high fevers, chills, night sweats, or any other worrisome signs or symptoms. This is a summarized report of a complex medical history and hospital stay. For further details, please see the entire medical record. TIME SPENT: Approximately 35 minutes was spent on this discharge, greater than half that time was spent [id number] with the patient discussing discharge plans and instructions. GAVIN BILLY [id number]/[facility] #: [id number] ROGE
== END 2019-03-04 15:50 | disposition home or self-care (01) ==
LOC: ED 14:24 → MED 21:37
PROVIDERS: ADMIT Hospitalist; ATTEND Internal Medicine
DX: M25.572 Pain in left ankle and joints of left foot (principal); M25.571 Pain in right ankle and joints of right foot; I10 Essential (primary) hypertension; E78.5 Hyperlipidemia, unspecified; K21.9 Gastro-esophageal reflux disease without esophagitis; Z90.5 Acquired absence of kidney; M81.0 Age-related osteoporosis without current pathological fracture; J30.9 Allergic rhinitis, unspecified; Z79.82 Long term (current) use of aspirin; Z79.899 Other long term (current) drug therapy; Z85.53 Personal history of malignant neoplasm of renal pelvis; M10.9 Gout, unspecified; Z87.891 Personal history of nicotine dependence; R51 Headache
CPT/HCPCS: 36415; 80053; 81003; 81015; 84550; 85025; 85652; 86140; 86431; 87086; 96361; 96372; 96374; 96375; 99285; A9270-GY; G0378; G8978-GP-CJ; G8979-GP-CI; J1644; J2270; J2405; J7512

== ENCOUNTER 2019-05-22 10:32 | Day surgery (SDC) | payer MEDICARE ==
[~2019-05-22 10:32] MED LIST: Acetaminophen TAB* 325 MG PO PRN; Buffered Lidocaine 1% SYRIN* 1 ML/SYRINGE INTRADERM ONE; Cyclopentolate 1% OPTH.SOL* 2 ML BTL ONE; Ketorolac 0.5% OPHTH (NF) 0.5 % 5 ML BTL ONE; Lidocaine 1% MPF ** 5 ML VIAL ONE; Lidocaine 2% w/ EPI 1:200,000* 20 ML SDV VIAL ONE; Neomycin/Polymy/Dex OPTH.SUSP* MAXITROL 0.1% 5 ML ONE; Phenylephrine OPHTH SOL 2.5%* 2 ML ONE; Povidone Iodine 5% OPTH* 30 ML BTL ONE; Proparacaine 0.5% OPHTH.SOL* 15 ML BTL ONE; acetaZOLAMIDE TAB* 250 MG ONE
[2019-05-22] MEDS ORDERED: Midazolam* 1 MG/ML 5 ML VIAL (5 MG) ONE (12:30)
[2019-05-22 13:56] VITALS: BP 156/72
--- NOTE | 2019-05-23 01:28 | OP ---
DATE OF OPERATION: 05/22/19 [facility] DATE OF : 40 SURGEON: Tay Melvin M.D. PREOPERATIVE DIAGNOSIS: Cataract, right. POSTOPERATIVE DIAGNOSIS: Cataract, right. OPERATIVE PROCEDURE: Extracapsular cataract extraction with IOL, intraocular lens implant right eye. DESCRIPTION OF PROCEDURE: The patient was brought to the operating room after being given 1/2% Alcaine with epinephrine drops in the preoperative area. The eye was prepped and draped in the usual sterile fashion. Sterile drape and eyelid speculum were placed. Again, topical 1/2% Alcaine with epinephrine was given. A paracentesis incision was made at the 9 o'clock position with the No.75 blade. Clear cornea incision 2.2 x 2.2-mm was created at the 12 o'clock position starting at the anterior limbus using the 2.2-mm keratome. The anterior chamber was irrigated with 0.4 mL of 1% non-preservative intracameral lidocaine and filled with DisCoVisc. A capsulorrhexis was completed using the cystotome and the Utrata forceps. Hydrodissection was performed with balanced salt solution. The lens nucleus was removed with the Phacoemulsification handpiece without incident. Cortex was removed with the irrigation-aspiration handpiece. The capsular bag was re-inflated using DisCoVisc and an [id number] 21.5 implant was inserted with the shooter. The irrigation-aspiration handpiece was used to remove all residual DisCoVisc. The eye was refilled with balanced salt solution and the wound checked and found to be watertight. Topical Maxitrol drops were given. [id number]/[facility] #: [id number] [facility]
== END 2019-05-22 13:43 | disposition home or self-care (01) ==
LOC: OREAST 10:32
PROVIDERS: ATTEND Specialist
DX: H25.811 Combined forms of age-related cataract, right eye (principal); K21.9 Gastro-esophageal reflux disease without esophagitis; I10 Essential (primary) hypertension; H18.51 Endothelial corneal dystrophy; E78.00 Pure hypercholesterolemia, unspecified; Z85.528 Personal history of other malignant neoplasm of kidney; Z90.5 Acquired absence of kidney; Z87.891 Personal history of nicotine dependence; Z79.82 Long term (current) use of aspirin; Z79.52 Long term (current) use of systemic steroids; Z88.1 Allergy status to other antibiotic agents; Z91.030 Bee allergy status
CPT/HCPCS: A9270-GY; J2250; V2632

== ENCOUNTER 2020-01-21 12:53 | Inpatient (IN) ==
[2020-01-21] MEDS ORDERED: NS 0.9% 1000 ml BAG 1,000 ML IV ONE (13:06)
[2020-01-21] MEDS ORDERED: niCARdipine 0.1MG/ML IVPREMIX 20 MG/200 ML BAG IV ONE (13:40)
[2020-01-21] MEDS ORDERED: ALTEPLASE IV ONE (13:44)
[2020-01-21] MEDS ORDERED: Alteplase (100 mg Vial) 100 MG in Premix IV 100 ML IV ONE (13:44)
[2020-01-21] MEDS ORDERED: Alteplase (100 mg Vial) 100 mg VIAL IV ONE ×2 (13:55→13:58)
[2020-01-21] MEDS ORDERED: niCARdipine 0.1MG/ML IVPREMIX 20 MG/200 ML BAG IV SCH (14:00)
[2020-01-21 14:18] LABS: ABS Basophils 0.1 10^3/ul (0-0.2); ABS Eosinophils 0.2 10^3/ul (0-0.6); ABS Lymphocytes 2.4 10^3/ul (1.0-4.8); ABS Monocytes 0.5 10^3/ul (0-0.8); ABS Neutrophils 2.6 10^3/ul (1.5-7.7); Eosinophil % 4.2 %; Hematocrit 43 % (35-47); Hemoglobin 14.4 g/dL (12.0-16.0); Lymphocyte % 41.3 %; Mean Corpuscular HGB Conc 34 g/dL (31-36); Mean Corpuscular Hemoglobin 32 pg (27-31); Mean Corpuscular Volume 94 fL (80-97); Mean Platelet Volume 10.3 fL (7.4-10.4); Nucleated Red Blood Cells % 0.1; Platelet Count 229 10^3/uL (150-450); Red Blood Count 4.57 10^6 /uL (3.70-4.87); Red Cell Distribution Width 14 % (10-15); White Blood Count 5.8 10^3/uL (3.5-10.8)
[2020-01-21 14:35] LABS: Activated Partial Thrombo Time 30.1 seconds (26.0-38.0); INR 0.98 (0.82-1.09)
[2020-01-21 14:36] LABS: Albumin 4.6 g/dL (3.2-5.2); Albumin/Globulin Ratio 1.8 (1-3); EGFR African American 60.5 (>60); Globulin 2.5 g/dL (2-4); HDL Cholesterol 43.1 mg/dL; Potassium 4.4 mmol/L (3.5-5.0); Total Bilirubin 0.3 mg/dL (0.2-1.0); Total Protein 7.1 g/dL (6.4-8.9)
[2020-01-21 14:49] LABS: TSH Ultra Thyroid Stim Horm 1.67 mcIU/mL (0.34-5.60)
[2020-01-21 15:24] LABS: Magnesium 1.8 mg/dL (1.9-2.7)
[2020-01-21] MEDS ORDERED: Perflutren Lipid Microsphere 3 ML VIAL ONE (16:09)
[2020-01-21] MEDS ORDERED: Magnesium Sulfate 2 gm BAG 2 GM/50 ML BAG IVPB ONE (19:57)
[2020-01-21] MEDS: niCARdipine 0.1MG/ML IVPREMIX 20 MG/200 ML BAG IV SCH (21:09)
[2020-01-22] MEDS: niCARdipine 0.1MG/ML IVPREMIX 20 MG/200 ML BAG IV SCH (04:44)
[2020-01-22 04:51] LABS: ABS Basophils 0.1 10^3/ul (0-0.2); ABS Eosinophils 0.2 10^3/ul (0-0.6); ABS Lymphocytes 1.8 10^3/ul (1.0-4.8); ABS Monocytes 0.4 10^3/ul (0-0.8); ABS Neutrophils 2.9 10^3/ul (1.5-7.7); Eosinophil % 4.2 %; Hematocrit 40 % (35-47); Hemoglobin 13.4 g/dL (12.0-16.0); Lymphocyte % 33.5 %; Mean Corpuscular HGB Conc 34 g/dL (31-36); Mean Corpuscular Hemoglobin 32 pg (27-31); Mean Corpuscular Volume 94 fL (80-97); Mean Platelet Volume 10.1 fL (7.4-10.4); Platelet Count 206 10^3/uL (150-450); Red Blood Count 4.26 10^6 /uL (3.70-4.87); Red Cell Distribution Width 14 % (10-15); White Blood Count 5.5 10^3/uL (3.5-10.8)
[2020-01-22 04:56] LABS: INR 1.07 (0.82-1.09)
[2020-01-22 05:17] LABS: Magnesium 2.1 mg/dL (1.9-2.7); Potassium 4.7 mmol/L (3.5-5.0); Total Bilirubin 0.4 mg/dL (0.2-1.0)
[2020-01-22 05:23] LABS: Albumin/Globulin Ratio 2.1 (1-3); BUN/Creatinine Ratio 16.5 (8-20); EGFR African American 72.2 (>60); EGFR Non-African American 59.6 (>60); Globulin 1.9 g/dL (2-4); Phosphorus 3.3 mg/dL (2.5-5.0); Total Protein 5.9 g/dL (6.4-8.9)
[2020-01-22] MEDS: Cholecalciferol (VIT D3) 1,000 unit TAB PO SCH (08:34)
[2020-01-22] MEDS ORDERED: Iodixanol (CONTRAST) 320 MG/ML 100 ML SDV IV ONE (15:59)
[2020-01-22] MEDS ORDERED: Cyanocobalamin INJ 1,000 MCG/ML VIAL 1 ML VIAL IM ONE (19:39)
[2020-01-22] MEDS: Aspirin EC 81 mg TAB.EC (enteric coated) PO SCH (19:43)
[2020-01-23 04:36] LABS: ABS Eosinophils 0.2 10^3/ul (0-0.6); ABS Lymphocytes 2.5 10^3/ul (1.0-4.8); ABS Monocytes 0.5 10^3/ul (0-0.8); ABS Neutrophils 2.4 10^3/ul (1.5-7.7); Eosinophil % 4.4 %; Hematocrit 40 % (35-47); Hemoglobin 13.3 g/dL (12.0-16.0); Lymphocyte % 44.9 %; Mean Corpuscular HGB Conc 33 g/dL (31-36); Mean Corpuscular Hemoglobin 32 pg (27-31); Mean Corpuscular Volume 95 fL (80-97); Mean Platelet Volume 10.1 fL (7.4-10.4); Nucleated Red Blood Cells % 0.1; Platelet Count 210 10^3/uL (150-450); Red Blood Count 4.22 10^6 /uL (3.70-4.87); Red Cell Distribution Width 14 % (10-15); White Blood Count 5.6 10^3/uL (3.5-10.8)
[2020-01-23 04:53] LABS: Albumin 3.9 g/dL (3.2-5.2); Albumin/Globulin Ratio 1.6 (1-3); BUN/Creatinine Ratio 15.4 (8-20); Calcium 9.9 mg/dL (8.6-10.3); EGFR Non-African American 42.1 (>60); Globulin 2.5 g/dL (2-4); Magnesium 1.8 mg/dL (1.9-2.7); Potassium 4.8 mmol/L (3.5-5.0); Total Bilirubin 0.3 mg/dL (0.2-1.0); Total Protein 6.4 g/dL (6.4-8.9)
[2020-01-23] MEDS ORDERED: Magnesium Sulfate 2 GM IV (Premix) IVPB ONE (06:00)
[2020-01-23] MEDS: Aspirin EC 81 mg TAB.EC (enteric coated) PO SCH (09:18)
[2020-01-23] MEDS: Cholecalciferol (VIT D3) 1,000 unit TAB PO SCH (09:18)
[2020-01-24] MEDS: Cholecalciferol (VIT D3) 1,000 unit TAB PO SCH (08:36)
[2020-01-24] MEDS: Aspirin EC 81 mg TAB.EC (enteric coated) PO SCH (08:37)
[2020-01-24 12:45] VITALS: BP 179/78
== END 2020-01-24 13:46 | disposition home health service (06) | DRG 61 ==
LOC: ED 12:53 → ICU 14:37 → MEDTELE 01-24 07:36
PROVIDERS: ADMIT Internal Medicine; ATTEND Internal Medicine

== ENCOUNTER 2020-11-11 21:06 | Inpatient (IN) ==
[2020-11-11] MEDS ORDERED: Acetaminophen IV 1 GM/100ML 100 ML IV ONE (21:30)
[2020-11-11 21:52] LABS: ABS Basophils 0.1 10^3/ul (0-0.2); ABS Eosinophils 0.2 10^3/ul (0-0.6); ABS Lymphocytes 3.1 10^3/ul (1.0-4.8); ABS Monocytes 0.7 10^3/ul (0-0.8); ABS Neutrophils 4.5 10^3/ul (1.5-7.7); Eosinophil % 2.3 %; Hematocrit 38 % (35-47); Lymphocyte % 35.9 %; Mean Corpuscular HGB Conc 34 g/dL (31-36); Mean Corpuscular Hemoglobin 32 pg (27-31); Mean Corpuscular Volume 94 fL (80-97); Mean Platelet Volume 9.7 fL (7.4-10.4); Platelet Count 253 10^3/uL (150-450); Red Blood Count 4.07 10^6 /uL (3.70-4.87); Red Cell Distribution Width 14 % (10-15); White Blood Count 8.6 10^3/uL (3.5-10.8)
[2020-11-11 22:11] LABS: Albumin 4.5 g/dL (3.2-5.2); Albumin/Globulin Ratio 1.7 (1-3); Calcium 10.7 mg/dL (8.6-10.3); EGFR Non-African American 50.4 (>60); Globulin 2.6 g/dL (2-4); Potassium 4.1 mmol/L (3.5-5.0); Total Bilirubin 0.4 mg/dL (0.2-1.0); Total Protein 7.1 g/dL (6.4-8.9)
[2020-11-11 22:19] LABS: Activated Partial Thrombo Time 27.4 seconds (26.0-38.0); INR 0.96 (0.86-1.15)
[2020-11-11] MEDS ORDERED: fentaNYL 100 mcg/2 ml 50 MCG/ML VIAL IV ONE (22:22)
[2020-11-11] MEDS ORDERED: Magnesium Hydroxide LIQ 30 ML UDC PO PRN (23:54)
[2020-11-11] MEDS ORDERED: Ondansetron 4 mg VIAL 2 MG/ML 2 ml VIAL IV PRN (23:54)
[2020-11-12] MEDS ORDERED: Morphine 2 MG/ML SYRINGE IV PRN (00:02)
[2020-11-12] MEDS ORDERED: Acetaminophen IV 1 GM/100ML 100 ML IV PRN (00:30)
[2020-11-12] MEDS: HYDROmorphone 0.5 MG/0.5 ML SYRINGE IV PRN ×2 (01:03→07:42)
[2020-11-12] MEDS ORDERED: NS 0.9% 1000 ml BAG 1,000 ML IV SCH (03:30)
[2020-11-12 05:36] LABS: ABS Lymphocytes 1.3 10^3/ul (1.0-4.8); ABS Monocytes 0.7 10^3/ul (0-0.8); ABS Neutrophils 7.5 10^3/ul (1.5-7.7); Eosinophil % 0.1 %; Hematocrit 36 % (35-47); Hemoglobin 12.1 g/dL (12.0-16.0); Lymphocyte % 13.8 %; Mean Corpuscular HGB Conc 34 g/dL (31-36); Mean Corpuscular Hemoglobin 32 pg (27-31); Mean Corpuscular Volume 95 fL (80-97); Mean Platelet Volume 9.6 fL (7.4-10.4); Platelet Count 213 10^3/uL (150-450); Red Blood Count 3.75 10^6 /uL (3.70-4.87); Red Cell Distribution Width 14 % (10-15); White Blood Count 9.5 10^3/uL (3.5-10.8)
[2020-11-12 05:40] LABS: INR 1.1 (0.86-1.15)
[2020-11-12 05:47] LABS: Albumin 4.3 g/dL (3.2-5.2); C Reactive Protein 3.39 mg/L (<8.01); Calcium 10.4 mg/dL (8.6-10.3); EGFR African American 72.9 (>60); EGFR Non-African American 60.2 (>60); Globulin 2.2 g/dL (2-4); Potassium 4.8 mmol/L (3.5-5.0); Total Bilirubin 0.5 mg/dL (0.2-1.0); Total Protein 6.5 g/dL (6.4-8.9)
[2020-11-12] MEDS: Cholecalciferol (VIT D3) 1,000 unit TAB PO SCH ×2 (08:26→09:31)
[2020-11-12 11:19] LABS: Urine Appearance Cloudy; Urine Bilirubin Negative (Negative); Urine Blood Negative (Negative); Urine Color Yellow; Urine Glucose Negative (Negative); Urine Ketones Negative (Negative); Urine Nitrite Positive (Negative); Urine Protein Negative (Negative); Urine Urobilinogen Negative (Negative)
[2020-11-12 11:22] LABS: Urine Bacteria Absent (Absent); Urine Red Blood Cell 1+(3-5/hpf) (Absent); Urine Squamous Epithelial Cell Present (Absent); Urine White Blood Cell 3+(>20/hpf) (Absent)
[2020-11-12] MEDS ORDERED: HYDROcodone/ACETAMIN 5/325 mg TAB PO PRN ×2 (11:31→14:21)
[2020-11-12] MEDS: Enoxaparin 40 MG/0.4 ML SYR SUBCUT SCH (11:31)
[2020-11-13 06:32] LABS: ABS Eosinophils 0.1 10^3/ul (0-0.6); ABS Lymphocytes 1.9 10^3/ul (1.0-4.8); ABS Monocytes 0.8 10^3/ul (0-0.8); ABS Neutrophils 5.5 10^3/ul (1.5-7.7); Eosinophil % 1.1 %; Hematocrit 32 % (35-47); Lymphocyte % 22.9 %; Mean Corpuscular HGB Conc 35 g/dL (31-36); Mean Corpuscular Hemoglobin 33 pg (27-31); Mean Corpuscular Volume 94 fL (80-97); Mean Platelet Volume 9.2 fL (7.4-10.4); Platelet Count 181 10^3/uL (150-450); Red Blood Count 3.38 10^6 /uL (3.70-4.87); Red Cell Distribution Width 14 % (10-15); White Blood Count 8.3 10^3/uL (3.5-10.8)
[2020-11-13 06:36] LABS: Calcium 9.6 mg/dL (8.6-10.3); EGFR African American 73.8 (>60); Potassium 4.2 mmol/L (3.5-5.0)
[2020-11-13] MEDS: Senna TAB 8.6 mg TAB PO PRN (10:02)
[2020-11-13] MEDS: Cholecalciferol (VIT D3) 1,000 unit TAB PO SCH (10:03)
[2020-11-13] MEDS: Enoxaparin 40 MG/0.4 ML SYR SUBCUT SCH (11:49)
[2020-11-13] MEDS: cefTRIAXone 1 gm/50 mL NS BAG 1 GM/50 ML BAG IVPB SCH (13:15)
[2020-11-14 06:09] LABS: ABS Eosinophils 0.2 10^3/ul (0-0.6); ABS Lymphocytes 1.8 10^3/ul (1.0-4.8); ABS Monocytes 0.7 10^3/ul (0-0.8); Hematocrit 34 % (35-47); Hemoglobin 11.3 g/dL (12.0-16.0); Lymphocyte % 23.8 %; Mean Corpuscular HGB Conc 33 g/dL (31-36); Mean Corpuscular Hemoglobin 32 pg (27-31); Mean Corpuscular Volume 95 fL (80-97); Mean Platelet Volume 9.3 fL (7.4-10.4); Platelet Count 179 10^3/uL (150-450); Red Blood Count 3.56 10^6 /uL (3.70-4.87); Red Cell Distribution Width 14 % (10-15); White Blood Count 7.8 10^3/uL (3.5-10.8)
[2020-11-14 06:25] LABS: Calcium 9.9 mg/dL (8.6-10.3); EGFR African American 63.1 (>60); EGFR Non-African American 52.1 (>60); Potassium 4.2 mmol/L (3.5-5.0)
[2020-11-14] MEDS: Cholecalciferol (VIT D3) 1,000 unit TAB PO SCH (09:50)
[2020-11-14] MEDS: Enoxaparin 40 MG/0.4 ML SYR SUBCUT SCH (09:51)
[2020-11-14] MEDS: Senna TAB 8.6 mg TAB PO PRN (09:51)
[2020-11-14] MEDS: cefTRIAXone 1 gm/50 mL NS BAG 1 GM/50 ML BAG IVPB SCH (13:02)
[2020-11-14] MEDS: Polyethylene Glycol 3350 17 GM PACKET PO SCH ×2 (16:31→19:46)
[2020-11-15] MEDS ORDERED: CMCS: Alendronate 70 mg TAB (NF) PO SCH (07:00)
[2020-11-15] MEDS: Polyethylene Glycol 3350 17 GM PACKET PO SCH (08:06)
[2020-11-15] MEDS: Cholecalciferol (VIT D3) 1,000 unit TAB PO SCH (08:42)
[2020-11-15] MEDS: Enoxaparin 40 MG/0.4 ML SYR SUBCUT SCH (11:21)
[2020-11-15] MEDS: cefTRIAXone 1 gm/50 mL NS BAG 1 GM/50 ML BAG IVPB SCH (14:01)
[2020-11-15] MEDS ORDERED: Glycerin ADULT 2.4 gm SUPP PR ONE (14:14)
[2020-11-15] MEDS ORDERED: Magnesium Hydroxide LIQ 30 ML UDC PO PRN (15:28)
[2020-11-16 06:05] LABS: ABS Basophils 0.1 10^3/ul (0-0.2); ABS Eosinophils 0.2 10^3/ul (0-0.6); ABS Lymphocytes 2.4 10^3/ul (1.0-4.8); ABS Monocytes 0.6 10^3/ul (0-0.8); Eosinophil % 2.1 %; Hematocrit 33 % (35-47); Hemoglobin 11.2 g/dL (12.0-16.0); Lymphocyte % 32.9 %; Mean Corpuscular HGB Conc 34 g/dL (31-36); Mean Corpuscular Hemoglobin 33 pg (27-31); Mean Corpuscular Volume 95 fL (80-97); Mean Platelet Volume 9.1 fL (7.4-10.4); Platelet Count 257 10^3/uL (150-450); Red Blood Count 3.41 10^6 /uL (3.70-4.87); Red Cell Distribution Width 14 % (10-15); White Blood Count 7.3 10^3/uL (3.5-10.8)
[2020-11-16 06:23] LABS: Calcium 9.9 mg/dL (8.6-10.3); EGFR African American 65.3 (>60); Magnesium 2.1 mg/dL (1.9-2.7); Potassium 4.1 mmol/L (3.5-5.0)
[2020-11-16] MEDS ORDERED: Bupivacaine 0.25% SDV 30 ML ONE (07:13)
[2020-11-16] MEDS ORDERED: Phenylephrine IV 10 MG/ML 1 ml VIAL ONE (07:37)
[2020-11-16] MEDS ORDERED: Lidocaine 2% PF 5 ML VIAL ONE ×2 (07:47→07:48)
[2020-11-16] MEDS ORDERED: Midazolam 2 mg/2 ml VIAL 1 mg/ml 2 ml VIAL (2 mg) ONE (07:47)
[2020-11-16] MEDS ORDERED: Propofol 10 MG/ML 20 ML BTL ONE (07:48)
[2020-11-16] MEDS ORDERED: ceFAZolin 2 GM in NS PREMIX 2 GM/100 ML BAG IVPB ONE (08:00)
[2020-11-16] MEDS ORDERED: fentaNYL 100 mcg/2 ml 50 MCG/ML VIAL ONE ×2 (08:50→09:24)
[2020-11-16] MEDS: Cholecalciferol (VIT D3) 1,000 unit TAB PO SCH (09:12)
[2020-11-16] MEDS ORDERED: Naloxone 0.4 mg VIAL 0.4 mg/ml 1 ml VIAL IV PRN (09:34)
[2020-11-16] MEDS ORDERED: fentaNYL 100 mcg/2 ml 50 MCG/ML VIAL IV PRN (09:34)
[2020-11-16] MEDS ORDERED: DiMENhydriNATE IV 50 mg/ml 1 ml VIAL IV PUSH PRN (09:34)
[2020-11-16] MEDS ORDERED: Dexamethasone IV 4 MG/ML VIAL 1 ml VIAL ONE (09:35)
[2020-11-16] MEDS ORDERED: Dexmedetomidine 200 mcg/2 ml 2 ml VIAL (200 mcg) ONE (09:40)
[2020-11-16] MEDS ORDERED: Acetaminophen IV 1 GM/100ML 100 ML IV ONE (10:11)
[2020-11-16] MEDS ORDERED: Ondansetron 4 mg VIAL 2 MG/ML 2 ml VIAL ONE (10:11)
[2020-11-16] MEDS ORDERED: DiMENhydriNATE IV 50 mg/ml 1 ml VIAL ONE (11:45)
[2020-11-16] MEDS ORDERED: Lactated Ringers 1000 ml BAG 1,000 ML IV ONE (15:00)
[2020-11-16] MEDS: ceFAZolin 1 GM X 3 DOSES POST-OP Q8H (AddVan) IVPB SCH (16:41)
[2020-11-17] MEDS: ceFAZolin 1 GM X 3 DOSES POST-OP Q8H (AddVan) IVPB SCH ×2 (00:11→09:15)
[2020-11-17 06:35] LABS: Hematocrit 26 % (35-47); Mean Corpuscular HGB Conc 34 g/dL (31-36); Mean Corpuscular Hemoglobin 33 pg (27-31); Mean Corpuscular Volume 95 fL (80-97); Mean Platelet Volume 9.4 fL (7.4-10.4); Platelet Count 230 10^3/uL (150-450); Red Blood Count 2.76 10^6 /uL (3.70-4.87); Red Cell Distribution Width 14 % (10-15); White Blood Count 7.9 10^3/uL (3.5-10.8)
[2020-11-17 07:08] LABS: Calcium 9.3 mg/dL (8.6-10.3); EGFR African American 70.2 (>60); Potassium 4.5 mmol/L (3.5-5.0)
[2020-11-17] MEDS: Cholecalciferol (VIT D3) 1,000 unit TAB PO SCH (09:20)
[2020-11-17] MEDS ORDERED: ceFAZolin 1 GM ADVAN 1 GM in NS 0.9% 50 ML 50 ML IVPB SCH (10:00)
[2020-11-18 08:45] LABS: Hematocrit 26 % (35-47); Hemoglobin 8.8 g/dL (12.0-16.0)
[2020-11-18] MEDS: Cholecalciferol (VIT D3) 1,000 unit TAB PO SCH (08:56)
[2020-11-19 05:37] LABS: Hematocrit 26 % (35-47)
[2020-11-19] MEDS ORDERED: Flu vaccine *QUAD* 2021-22* 0.5 ML SYRINGE IM ONE (09:00)
[2020-11-19] MEDS: Cholecalciferol (VIT D3) 1,000 unit TAB PO SCH (09:47)
[2020-11-20 06:21] LABS: Hematocrit 27 % (35-47); Hemoglobin 9.4 g/dL (12.0-16.0)
[2020-11-20] MEDS: Cholecalciferol (VIT D3) 1,000 unit TAB PO SCH (08:47)
[2020-11-21] MEDS: Cholecalciferol (VIT D3) 1,000 unit TAB PO SCH (09:05)
[2020-11-21 16:27] VITALS: BP 141/56
== END 2020-11-21 16:30 | DRG 481 ==
LOC: ED 21:06 → SUATTDRO 23:54 → SSU 23:54
PROVIDERS: ADMIT Internal Medicine; ATTEND Internal Medicine